=== PATIENT | male | born 1985 | race Hispanic/Latino ===

== ENCOUNTER 2022-01-12 08:58 | Emergency (ER) | payer SELFPAY ==
[2022-01-12 09:42] LABS: #Basophils 0.1 thou/uL (0.0-0.2); #Eosinphils 0.1 thou/uL (0.0-0.7); #Lymphocytes 2.1 thou/uL (1.20-3.40); #Monocytes 0.5 thou/uL (0.11-0.59); #Neutrophils 4.6 thou/uL (1.40-6.50); %Basophils 0.8 % (0.0-1.0); %Eosinophils 1.2 % (0.0-10.0); %Monocytes 6.1 % (0.0-10.0); %Neutrophils 62.9 % (42.0-75.0); Hemoglobin 15.6 g/dL (14.0-18.0); Mean Corpuscular HGB CONC 34.8 g/dL (32.0-36.0); Mean Corpuscular Hemoglobin 32.8 pg (27.0-31.0); Mean Corpuscular Volume 94.2 fL (78.0-98.0); Mean Platelet Volume 7.8 fL (7.4-10.4); Platelet Count 200 thou/uL (130-400); RBC Distribution Width 11.4 % (11.5-14.5); Red Blood Cell (RBC) Count 4.76 mill/uL (4.70-6.10); White Blood Cell (WBC) Count 7.3 thou/uL (4.8-10.8)
[2022-01-12 10:03] LABS: ALT (SGPT) 132 U/L (8-55); AST (SGOT) 63 U/L (5-34); Albumin 4.5 g/dL (3.5-5.0); Alkaline Phosphatase 94 U/L (40-110); Anion Gap 19 mmol/L (10-20); BUN (Urea Nitrogen) 27 mg/dL (8.9-20.6); Bilirubin, Total 1.2 mg/dL (0.2-1.2); Calc. Creatinine Clearance 0 mL/min (70-130); Calcium 9.9 mg/dL (7.8-10.44); Carbon Dioxide 20 mmol/L (22-29); Chloride 94 mmol/L (98-107); Estimated GFR 71; Globulin 3.3 g/dL (2.4-3.5); Glucose 462 mg/dL (70-105); Potassium 3.7 mmol/L (3.5-5.1); Protein, Total 7.8 g/dL (6.0-8.3); Sodium 129 mmol/L (136-145)
[2022-01-12 11:43] LABS: Actual Bicarbonate (HCO3v) 21 mEq/L (22-28); Calcium, Ionized (venous) 1.19 mmol/L (1.16-1.32); Chloride (VBG) 95 mmol/L (98-106); Hemoglobin (Hb) 15.5 g/dL (13.2-17.3); Potassium (VBG) 3.78 mmol/L (3.70-5.30); Sodium 132.1 mmol/L (133-146); pH (venous) 7.36 (7.32-7.43)
== END 2022-01-12 13:03 | disposition home or self-care (01) ==
LOC: ERS 08:58
DX: E11.65 Type 2 diabetes mellitus with hyperglycemia (principal); I10 Essential (primary) hypertension; R00.0 Tachycardia, unspecified; Z87.891 Personal history of nicotine dependence; Z79.84 Long term (current) use of oral hypoglycemic drugs; Z79.899 Other long term (current) drug therapy
CPT/HCPCS: 36415; 36416; 80053; 82010; 82805; 85025; 96360; 96361

== ENCOUNTER 2022-09-28 20:10 | Emergency (ER) | payer SELFPAY ==
[2022-09-28 21:06] LABS: #Eosinphils 0.2 thou/uL (0.0-0.7); #Lymphocytes 3.2 thou/uL (1.20-3.40); #Monocytes 0.6 thou/uL (0.11-0.59); #Neutrophils 4.7 thou/uL (1.40-6.50); %Basophils 0.5 % (0.0-1.0); %Eosinophils 2.1 % (0.0-10.0); %Lymphocytes 36.8 % (21.0-51.0); %Monocytes 6.4 % (0.0-10.0); %Neutrophils 54.2 % (42.0-75.0); Hemoglobin 17.1 g/dL (14.0-18.0); Mean Corpuscular HGB CONC 34.8 g/dL (32.0-36.0); Mean Corpuscular Volume 91.7 fl (78.0-98.0); Mean Platelet Volume 7.7 fL (7.4-10.4); Platelet Count 191 10x3/uL (130-400); RBC Distribution Width 12.2 % (11.5-14.5); Red Blood Cell (RBC) Count 5.35 mill/uL (4.70-6.10); White Blood Cell (WBC) Count 8.7 10x3/uL (4.8-10.8)
[2022-09-28 21:22] LABS: ALT (SGPT) 30 U/L (8-55); AST (SGOT) 24 U/L (5-34); Albumin 5.1 g/dL (3.5-5.0); Alkaline Phosphatase 92 U/L (40-110); Anion Gap 16 mmol/L (10-20); BUN (Urea Nitrogen) 11 mg/dL (8.9-20.6); Bilirubin, Total 0.3 mg/dL (0.2-1.2); Calc. Creatinine Clearance 0 mL/min (70-130); Carbon Dioxide 25 mmol/L (22-29); Chloride 99 mmol/L (98-107); Estimated GFR 114; Globulin 3.5 g/dL (2.4-3.5); Glucose 107 mg/dL (70-105); Protein, Total 8.6 g/dL (6.0-8.3); Sodium 137 mmol/L (136-145)
[2022-09-28 21:35] LABS: Amphetamine Not Detected (NotDetected); Barbiturates Screen Not Detected (NotDetected); Benzodiazepine Screen Not Detected (NotDetected); Cocaine Metabolite Screen Not Detected (NotDetected); Methadone Not Detected (NotDetected); Methamphetamine Not Detected (NotDetected); Opiate Screen Not Detected (NotDetected); Oxycodone Screen Not Detected (NotDetected); Phencyclidine (PCP) Not Detected (NotDetected); THC/Cannabinoid Screen Not Detected (NotDetected); Tricyclic Screen Not Detected (NotDetected)
[2022-09-28] MEDS ORDERED: Potassium Chloride 20 MEQ TAB ONE (22:07)
== END 2022-09-28 22:17 | disposition home or self-care (01) ==
LOC: ERS 20:10
DX: R42 Dizziness and giddiness (principal); E87.6 Hypokalemia; I10 Essential (primary) hypertension; E11.9 Type 2 diabetes mellitus without complications; E78.00 Pure hypercholesterolemia, unspecified; Z87.891 Personal history of nicotine dependence
CPT/HCPCS: 80053; 80306; 85025; 93005; 96360